=== PATIENT | male | born 1970 | race Caucasian/White ===

== ENCOUNTER 2023-03-28 15:07 | Emergency (ER) | payer BC, SELFPAY ==
[2023-03-28 15:12] VITALS: BP 130/82; PULSE 99; RESP 18; TEMP 36.2; O2SAT 98; BMI 32.7
--- NOTE | 2023-03-28 15:18 | ED.GENADULT ---
HPI - General Adult General Time Seen by Provider: 15:18 Date Seen: 03/28/23 Chief complaint: Unspecified Complaint, Adult Stated complaint: Muscle pain Time Seen by Provider: 03/28/23 15:09 Source: patient and RN notes reviewed Mode of arrival: ambulatory Limitations: no limitations History of Present Illness HPI narrative: This 52yo male is coming into the ED after talking to phone triage nurse for right back pain. He notes he has had this right back pain for some time but recently it has intensified. Denies any trauma. No fevers or chills. Is definitely positional. Movement hurts it. There is no internal breathing difficulty, no internal chest pain. He has tried some ice and heat, maybe some isolated ibuprofen use. He has went to the chiropractor, it use to last a lot longer but now it is only about 1 day that it stays improved. He notes sometimes when he will move positions like sitting up, it will catch and be severe to the point it takes his breath away for a few seconds. When the pain is quite intense, he has had nausea. Otherwise, at baseline there is no nausea vomiting, no abdominal pain, no change in appetite or difficulty eating. It does seem like it is external to him in the chest wall along the right side, along the base of the ribs, over lower rib area. He is on sertraline, denies any medication use such as cholesterol medicine. Also takes BuSpar. Related Data Home Medications Medication Instructions Recorded Confirmed buspirone 10 mg tablet 20 mg PO BID 03/28/23 03/28/23 sertraline 100 mg tablet 100 mg PO BID 03/28/23 03/28/23 Previous Rx's Medication Instructions Recorded cyclobenzaprine 10 mg tablet 10 mg PO TID PRN muscle spasm #20 03/28/23 tabs ketorolac 10 mg tablet 10 mg PO Q6H PRN pain 5 days #20 03/28/23 tabs Allergies Allergy/AdvReac Type Severity Reaction Status Date / Time No Known Drug Allergies Allergy Verified 03/21/22 11:43 Review of Systems Status of ROS: Reports: 6 or more systems reviewed and unremarkable except as noted in History and below Exam Const: Vital Signs, click to edit/add: Vital Signs - 24 hr 03/28/23 15:12 Temperature 97.1 F L Pulse Rate [Right Pulse Oximeter] 99 Respiratory Rate 18 Blood Pressure [Ri ght Upper Arm] 130/82 Pulse Oximetry 98 Oxygen Delivery Me thod Room Air 52-year-old male is alert, interactive, no apparent distress. When he did lie back on the bed and 1 time sitting up, felt pain in that right posterior back area. He is alert, interactive, no apparent distress. Face atraumatic, sclera clear. Neck supple. No midline tenderness over his cervical spine thoracic spine or lumbar spine. There is no paraspinous tenderness on either side, certainly no interscapular back pain on palpation. There is no visible changes to the skin over the chest wall on inspection. I cannot palpably reproduce the chest wall pain. With movement he is definite that he feels it in the chest wall. Lungs are clear, good air entry, no wheezing or crackles. CV regular rate and rhythm, no murmur, normal S1 and S2. Abdomen is completely soft, nontender, nondistended, no organomegaly. Documenting provider has reviewed patient's vital signs: yes Course Course ED Course: We will look at chest xray, basic labs including CBC, CRP, lytes. This seems likely musculoskeletal based on examination. Reevaluation(s) Time of Reevaluation #1: 16:24 Reevaluation #1: Reviewed with patient the normal CXR and labs. Re-evaluation shows him to definitely be symptomatic in the right interscapular region, more inferiorly. Was evaluated after attempting to sit up and found painful areas. Vital Signs Vital signs: Initial Vital Signs Temperature 97.1 F L 03/28/23 15:12 Temperature Source Temporal Artery Scan 03/28/23 15:12 Pulse Rate 99 03/28/23 15:12 Respiratory Rate 18 03/28/23 15:12 Blood Pressure 130/82 03/28/23 15:12 Blood Pressure Mean 98 03/28/23 15:12 Blood Pressure Position Sitting 03/28/23 15:12 Pulse Oximetry 98 03/28/23 15:12 Oxygen Delivery Method Room Air 03/28/23 15:12 Vital Signs Temperature 97.1 F L 03/28/23 15:12 Pulse Rate 99 03/28/23 15:12 Respiratory Rate 18 03/28/23 15:12 Blood Pressure 130/82 03/28/23 15:12 Pulse Oximetry 98 03/28/23 15:12 Oxygen Delivery Method Room Air 03/28/23 15:12 Temperature 97.1 F L 03/28/23 15:12 Pulse Rate 99 03/28/23 15:12 Respiratory Rate 18 03/28/23 15:12 Blood Pressure 130/82 03/28/23 15:12 Pulse Oximetry 98 03/28/23 15:12 Oxygen Delivery Method Room Air 03/28/23 15:12 Medical Decision Making Lab Data Lab results reviewed: Yes I reviewed the patient's lab results Labs: Lab Results 03/28/23 Range/Units 15:40 WBC 7.86 (4.50-11.00) K/uL RBC 4.89 (4.30-5.90) m/uL Hgb 14.2 (13.5-17.5) gm/dL Hct 42.7 (37.0-53.0) % MCV 87 (80-100) fL MCH 29 (26-34) pg MCHC 33 (32-36) gm/dL RDW Coeff of Swapnil 12.1 (11.5-15.5) % Plt Count 176 (140-440) K/uL Neut % (Auto) 69.3 (42.0-72.0) % Lymph % (Auto) 20.4 (20-44) % Upson % (Auto) 7.5 (0.0-11.0) % Eos % (Auto) 2.3 (0.0-7.0) % Baso % (Auto) 0.4 (0.0-3.0) % Neut # (Auto) 5.45 (1.7-7.0) K/uL Lymph # (Auto) 1.60 (0.90-2.90) K/uL Upson # (Auto) 0.60 (0.00-0.90) K/UL Eos # (Auto) 0.18 (0.00-0.50) K/uL Baso # (Auto) 0.03 (0.00-0.30) K/uL Abs Immat Gran (auto) 0.01 (0.00-0.30) K/uL Imm/Tot Granulo (auto) 0.1 % Sodium 136 (135-149) mmol/L Potassium 3.8 (3.6-5.1) mmol/L Chloride 105 (96-114) mmol/L Carbon Dioxide 22 (20-32) mmol/L Anion Gap 9 (7-15) mEq/L BUN 17 (7-30) mg/dL Creatinine 0.8 (0.5-1.5) mg/dL Estimated Creat Clear 119.90 Estimated GFR 107 ml/min Glucose 111 (60-115) mg/dL Calcium 8.3 L (8.4-10.6) mg/dL Total Bilirubin 0.2 (0.1-1.5) mg/dL AST 33 (12-35) U/L ALT 33 (4-50) U/L Alkaline Phosphatase 54 (40-150) U/L C-Reactive Protein < 0.5 L (0.5-1.0) mg/dL Total Protein 5.5 L (6.0-8.3) g/dL Albumin 3.5 (3.3-5.0) g/dL Imaging Data Chest x-ray: Attestation: I have reviewed the pertinent imaging results. My impression: No acute pathology on my preliminary review. Radiologist's impression: Patient: MCKENNA VO Facility:?[facility] Patient ID:?[id number] Site Patient ID:?[id number]. Site :?[id number] Study:?XRay Chest 2V-03/28/2023 3:54:50 PM Ordering Physician:Bala Wyatt Final Report: INDICATION: Chest pain. TECHNIQUE: Chest 2 views. COMPARISON: None. FINDINGS: Cardiovascular and mediastinum: Heart size and vasculature are normal in caliber and appearance. Lungs and pleural spaces: Lungs are clear. No sign of infiltrate or mass. No sign of pleural effusion. No pneumothorax. Bones and soft tissues: No significant findings. IMPRESSION: No acute or significant findings. Dictated by Mauro Souza MD @ 03/28/2023 3:58:41 PM Critical Care Time Critical Care Time Critical Care Time: No Discharge Plan Discharge Clinical Impression: Interscapular pain Patient Disposition: Home, Self-Care Condition: Stable Instructions: Back Pain (ED) Additional Instructions: The rhomboid muscle in this region of the back can cause as pain as you are experiencing. We will try a muscle relaxant and Toradol. Do not use ibuprofen while on the Toradol. Can supplement with Tylenol 1000 mg 3 times a day with either Toradol or ibuprofen. Once you are done with the Toradol, can move to ibuprofen. Would recommend ice to this interscapular area on the right. If this is not helping her symptoms over the next few days or if worsening, do recommend follow up in clinic for re-evaluation. It is fine to go to the chiropractor if you would still like to. Activity Level: Activity as Tolerated Prescriptions: New ketorolac 10 mg tablet 10 mg PO Q6H PRN (Reason: pain) 5 Days Qty: 20 0RF cyclobenzaprine 10 mg tablet 10 mg PO TID PRN (Reason: muscle spasm) Qty: 20 0RF No Action sertraline 100 mg tablet 100 mg PO BID buspirone 10 mg tablet 20 mg PO BID Follow Up/Referrals: Irvin Borja MD [Staff Physician] - Stand Alone Forms: [facility] Info Instructions
--- NOTE | 2023-03-28 15:29 | CRLHL7_ITS ---
For Patients: As a result of the Century Cures Act, medical imaging exams and procedure reports are released immediately into your electronic medical record. You may view this report before your referring provider. If you have questions, please contact your health care provider. INDICATION: Chest pain. TECHNIQUE: Chest 2 views. COMPARISON: None. FINDINGS: Cardiovascular and mediastinum: Heart size and vasculature are normal in caliber and appearance. Lungs and pleural spaces: Lungs are clear. No sign of infiltrate or mass. No sign of pleural effusion. No pneumothorax. Bones and soft tissues: No significant findings. IMPRESSION: No acute or significant findings. Dictated by Mauro Souza MD @ 03/28/2023 3:58:41 PM (Electronically Signed)
[2023-03-28 16:05] LABS: Basophils Absolute Auto 0.03 K/uL (0.00-0.30); Basophils Percent Auto 0.4 % (0.0-3.0); Eosinophils Absolute Auto 0.18 K/uL (0.00-0.50); Eosinophils Percent Auto 2.3 % (0.0-7.0); Hematocrit 42.7 % (37.0-53.0); Hemoglobin* 14.2 gm/dL (13.5-17.5); Immature Granulocytes Abs Auto 0.01 K/uL (0.00-0.30); Immature Granulocytes Pct Auto 0.1 %; Lymphocytes Percent Auto 20.4 % (20-44); Mean Corpuscular HGB Conc 33 gm/dL (32-36); Mean Corpuscular Hemoglobin 29 pg (26-34); Mean Corpuscular Volume 87 fL (80-100); Monocytes Percent Auto 7.5 % (0.0-11.0); Neutrophils Absolute Auto 5.45 K/uL (1.7-7.0); Neutrophils Percent Auto 69.3 % (42.0-72.0); Platelet Count* 176 K/uL (140-440); RDW Coefficient of Variation % 12.1 % (11.5-15.5); Red Blood Count 4.89 m/uL (4.30-5.90); White Blood Count* 7.86 K/uL (4.50-11.00)
[2023-03-28 16:07] LABS: Albumin* 3.5 g/dL (3.3-5.0); Chloride* 105 mmol/L (96-114)
[2023-03-28 16:08] LABS: Potassium* 3.8 mmol/L (3.6-5.1); Sodium* 136 mmol/L (135-149)
[2023-03-28 16:10] LABS: Creatinine* 0.8 mg/dL (0.5-1.5); Estimated Glomerular Filt Rate 107 ml/min
[2023-03-28 16:11] LABS: Alanine Aminotransferase* 33 U/L (4-50); Alkaline Phosphatase* 54 U/L (40-150); Anion Gap 9 mEq/L (7-15); Aspartate Amino Transferase* 33 U/L (12-35); Bilirubin Total* 0.2 mg/dL (0.1-1.5); Blood Urea Nitrogen* 17 mg/dL (7-30); Calcium* 8.3 mg/dL (8.4-10.6); Carbon Dioxide* 22 mmol/L (20-32); Glucose* 111 mg/dL (60-115); Total Protein* 5.5 g/dL (6.0-8.3)
[2023-03-28 16:16] LABS: C Reactive Protein* < 0.5 mg/dL (0.5-1.0); Slide Review Reflex No
== END 2023-03-28 16:36 | disposition home or self-care (01) ==
PROVIDERS: Emergency Provider Family Medicine
DX: M54.9 Dorsalgia, unspecified (principal)
CPT/HCPCS: 36415; 71046; 80053; 85025; 86140; 99283

== ENCOUNTER 2023-10-07 12:55 | Emergency (ER) | payer BC, SELFPAY ==
[2023-10-07 13:05] VITALS: BP 120/69; PULSE 74; RESP 16; TEMP 36.5; O2SAT 97; BMI 32.5
--- NOTE | 2023-10-07 13:18 | ED_ITS ---
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 It is fairly long and about 4 cm but it is very superficial and only deep a little bit in the middle and deep meaning just through the skin. Not into the flash or not into that she may the deep structures or tendons or muscle basically down to fat. The patient has full range of motion of his hand no deficit of hand motion or sensation. He is updated tetanus mention generally healthy not on blood thinners. Related Data Home Medications Medication Instructions Recorded Confirmed buspirone 10 mg tablet 20 mg PO BID 03/28/23 03/28/23 sertraline 100 mg tablet 100 mg PO BID 03/28/23 03/28/23 Previous Rx's Medication Instructions Recorded cyclobenzaprine 10 mg tablet 10 mg PO TID PRN muscle spasm #20 03/28/23 tabs ketorolac 10 mg tablet 10 mg PO Q6H PRN pain 5 days #20 03/28/23 tabs Allergies Allergy/AdvReac Type Severity Reaction Status Date / Time No Known Drug Allergies Allergy Verified 10/07/23 13:07 Review of Systems Status of ROS: Reports: 6 or more systems reviewed and unremarkable except as noted in History and below Exam Narrative: Exam Narrative: Objective: There is a very superficial about 4 cm cut that is very shallow and barely through the skin at the edges and then the 2 cm in the middle it is a little bit deeper down to fat does not gait much. It is fairly well approximated. Good hemostasis. Normal range of motion of the hand and sensation no tendon involvement. Const: Vital Signs, click to edit/add: Vital Signs - 24 hr 10/07/23 13:05 Temperature 97.7 F Pulse Rate [Right Pulse Oximeter] 74 Respiratory Rate 16 Blood Pressure [Ri ght Upper Arm] 120/69 Pulse Oximetry 97 Oxygen Delivery Me thod Room Air Course Vital Signs Vital signs: Initial Vital Signs Temperature 97.7 F 10/07/23 13:05 Temperature Source Temporal Artery Scan 10/07/23 13:05 Pulse Rate 74 10/07/23 13:05 Pulse Rhythm Regular 10/07/23 13:05 Pulse Strength 3+ Normal 10/07/23 13:05 Respiratory Rate 16 10/07/23 13:05 Blood Pressure 120/69 10/07/23 13:05 Blood Pressure Mean 86 10/07/23 13:05 Blood Pressure Position Sitting 10/07/23 13:05 Pulse Oximetry 97 10/07/23 13:05 Oxygen Delivery Method Room Air 10/07/23 13:05 Vital Signs Temperature 97.7 F 10/07/23 13:05 Pulse Rate 74 10/07/23 13:05 Respiratory Rate 16 10/07/23 13:05 Blood Pressure 120/69 10/07/23 13:05 Pulse Oximetry 97 10/07/23 13:05 Oxygen Delivery Method Room Air 10/07/23 13:05 Temperature 97.7 F 10/07/23 13:05 Pulse Rate 74 10/07/23 13:05 Respiratory Rate 16 10/07/23 13:05 Blood Pressure 120/69 10/07/23 13:05 Pulse Oximetry 97 10/07/23 13:05 Oxygen Delivery Method Room Air 10/07/23 13:05 Medical Decision Making MDM Narrative Medical decision making narrative: After discussion with the patient, he chose to simply try but her flying that shot I think dental work well, would keep his hands are water for the next 3-5 days, and then allow the Steri-Strips come off on their own in about a week's time. This should heal very well, will irrigated out I do not think he needs antibiotics as it is fairly superficial. He is up-to-date on his tetanus. Watch for redness infection, keep dry for at least 3-5 days as mention. Return if problems concerns bleeding or other issues. Did offer to suture this but he wished to try the Steri-Strips route I think that is appropriate and will work. Discharge Plan Discharge Clinical Impression: Laceration Patient Disposition: Home, Self-Care Condition: Improved Additional Instructions: Keep dry for about 5 to 7 days, would recommend allowing at 7 days the Steri- Strips to start coming off may start washing his hands. Would stay out of work it out of water for until that period of time as mention. Light use of the hand as well, avoid aspirin or blood thinners, would take Tylenol for discomfort. Watch for redness or infection return to ED if problems or concerns. Activity Level: Light activity Activity Detail: Keep hand out of water for 5-7 days Discharge Diet: Regular Prescriptions: No Action sertraline 100 mg tablet 100 mg PO BID buspirone 10 mg tablet 20 mg PO BID ketorolac 10 mg tablet 10 mg PO Q6H PRN (Reason: pain) 5 Days Qty: 20 0RF cyclobenzaprine 10 mg tablet 10 mg PO TID PRN (Reason: muscle spasm) Qty: 20 0RF Follow Up/Referrals: Provider,Not a Local [Primary Care Provider] - Stand Alone Forms: [facility] Info Instructions
--- OUTSIDE RECORDS SUMMARY | 2023-10-07 13:20 | XMS_ITS | Clinical Summary ---
Author Name Unknown Organization [facility] Address [place], [place] [address] Care Team Providers Care Machine Stacker Name Role Phone Pcp, No Primary Care Provider Unavailabl e Allergies No known active allergies Medications Medication Sig Dispensed Refills Start Date End Date Status sertraline (ZOLOFT) 50 mg tabletIndication s:Anxiety state,Mild episode of recurrent major depressive disorder (HC) Take 1 Tablet (50 mg) by mouth once daily. Appointment needed for more refills. 30 Tablet 08/24/2023 Active busPIRone (BUSPAR) 10 mg tabletIndication s:Anxiety state Take 1 Tablet (10 mg) by mouth two times daily. Appointment needed for further refills. 60 Tablet 09/17/2023 Active busPIRone (BUSPAR) 10 mg tabletIndication s:Anxiety state Take 1 Tablet (10 mg) by mouth two times daily. 120 Tablet 07/23/2023 4 Discontinue d(Reorder (E-cancel not sent)) Active Problems Problem Noted Date Diagnosed Date Alcohol dependence in remission 07/29/2012 Allergic rhinitis, cause unspecified 11/28/2011 ADHD (attention deficit hyperactivity disorder) 12/15/2010 Overview: Dx'ed as a child in gradeschool Major depressive disorder, recurrent episode, un specified 08/20/2009 GERD (gastroesophageal reflux disease) 0 OCD (obsessive compulsive disorder) 08/20/2009 Anxiety state, unspecified Resolved Problems Problem Noted Date Diagnosed Date Resolved Date Sprain of lumbar region 03/04/200807/27 Encounters Date Type Department Care Team Description 09/17/2023 Refill [facility] [address] [facility] [place] [address] Nancy Polo, DO Refill Request (Busiprone) 08/23/2023 Refill [facility] [address] [place] [address] Nancy Polo, DO Refill Request (Sertraline HCL 50mg tabs) 07/23/2023 1:10 PM COMPLIANCE EXAMINER Office [facility] [address] [facility] [place] [address] Nancy Polo, DO Medication Management (med management) 07/23/2023 Travel from Last 3 Months Immunizations Name Administration Dates Next Due COVID-19 vaccine (Macrotherapy 30mcg/0.3mL) P F, MDV 11/02/2020,10/12/2020 Influenza RIV4 (Age 18+ Years) PRESERV FREE 03/26 Influenza, IIV4 04/23/2023 Td (Age >=7 Years) 10/07/2007,08/06/2003 Tdap 10/09/2018 Family History Medical History Relation Name Comments Psychiatric illness Brother 1 ETOH dep endence, depression Good Health Father Cancer Maternal Uncle 1 Ramakrishna lung Cancer Maternal Uncle 2 Andreas lung Cancer-breast Mother Relation Name Status Comments Brother 1 Alive Brother 2 Alive Father Alive Maternal Uncle 1 Ramakrishna Maternal Uncle 2 Andreas Mother Alive Sister Alive Social History Tobacco Use Types Packs/Day Years Used Date Smoking Tobacco: Every Day Cigarettes Smokeless Tobacco: Never Tobacco Cessation:Ready to Q uit: Not Asked; Counseling Given: Not Answered Comments:attempting to quit - is smoking about 5 cigarettes per day at this time. Alcohol Use Standard Drinks/Week Comments Yes 0 (1 standard drink = 0.6 oz pur e alcohol) quit as of December 11, 2021 PHQ-2 Answer Date Recorded PHQ-2 TOTAL SCORE 4 07/23/2023 Social Connections Answer Date Recorded Frequency of Communication with Friends and Fami ly 0 07/23/2023 Financial Resource Strain Answer Date R ecorded Difficulty of Paying Living Expenses 3 07/23/2023 Difficulty of Paying Living Expenses Not on file 07/23/2023 Food Insecurity Answer Date Recorded Worried About Running Out of Food in the Last Ye ar 1 07/23/2023 Transportation Needs Answer Date Record ed Lack of Transportation (Medical) 1 07/23/2023 Housing Stability Answer Date Recorded Unable to Pay for Housing in the Last Year 1 07/23/2023 Sex and Gender Information Value Date Recorded Sex Assigned at Not on file Gender Identity Not on file Sexual Orientation Not on file Obstetrics History Last Filed Vital Signs Vital Sign Reading Time Taken Comments Blood Pressure 111/75 07/23/2023 1:17 PM COMPLIANCE EXAMINER Pulse 77 07/23/2023 1:17 PM COMPLIANCE EXAMINER Temperature 37 ??C (98.6 ??F) 08/19/2018 4:30 PM COMPLIANCE EXAMINER Respiratory Rate - - Oxygen Saturation 95% 07/23/2023 1:17 PM COMPLIANCE EXAMINER Inhaled Oxygen Concentration - - Weight 111.1 kg (245 lb) 07/23/2023 1:17 PM COMPLIANCE EXAMINER Height 185.4 cm (6' 1) 03/02/2022 10:29 AM CDT Body Mass Index 32.32 03/02/2022 10:29 AM CDT Plan of Treatment Health Maintenance Due Date Last Done Comments Pneumococcal series for age 6-64 (1 of 2 - PCV) 12/11/1977 HIV for age 15-65 12/11/1986 Hepatitis C screening for ag e 18-79 12/11/1989 Colonoscopy through age 75 12/11/2016 Lipids for age 45-75 12/31/2018 12/31/2013 Zoster (shingles) series for age 50+ (1 of 2) 12/11/2021 BMI (ht and wt on same day) for age 18+ 03/02/2023 03/02/2022, 12/21/2020, 08/19/2018, Additional history exists Influenza for age 50-64 02/24/2024 04/23/2023, 04/20 Depression screening for age 12+ 07/23/2024 07/23/2023, 03/02/2022, 12/21/2020, Additional history exists Tetanus booster 10/09/2028 10/09/2018, 09/23, 08/06/2003 Tdap Completed 10/09/2018 COVID-19 vaccine series Completed 04/23/20 23, 03/21/2022, 06/21/2021, Additional history exists Procedures Procedure Name Priority Date/Time Associated Diagnosis Comments LIPID PANEL W REFLEX MEASURED LDL Routine 12/31/2013 12:17 PM CDT Lipid screening from Last 3 Months or Most Recently Relevant to Health Maintenance Results * (ABNORMAL) LIPID PANEL W REFLEX MEASURED LDL (12/31/2013 12:17 PM CDT) CHOLESTEROL,TOTAL 241(H) 100 - 199 mg/dL 12/31/2013 12:43 PM CDT [facility] TRIGLYCERIDES 319(H) <150 mg/dL 12/31/2013 12:43 PM CDT [facility] HDL CHOLESTEROL 55 >40 mg/dL 4 12:43 PM CDT [facility] NON-HDL CHOLESTEROL 186(H) <145 mg/dl 12/31/2013 12:43 PM CDT [facility] CHOL/HDL RATIO 4.38 <4.50 12/31/2013 12:43 PM CDT [facility] LDL CHOLESTEROL 122 <=130 mg/dL 12/31/2013 12:43 PM CDT [facility] PATIENT STATUS NON-FASTI NG 12/31/2013 12:43 PM CDT [facility] Blood specimen (specimen) BLOOD SPECIMEN / Unknown Venipuncture / Unknown 12/31/2013 12:17 PM CDT 12/31/2013 12:17 PM CDT Tracey Jacobo MD CHEMISTRY [facility] [address] [place] [address], from Last 3 Months or Most Recently Relevant to Health Maintenance Care Teams Machine Stacker Relationship Specialty Start Date End Date Pcp, No . PCP - General 07/23/23
--- NOTE | 2023-10-07 13:29 | ED.NURSE ---
Patient's laceration cleansed with hibiclens and saline, laceration approximated and steri strips applied. Placed telfa on wound and wrapped with kerlix. Post care instructions reviewed with patient.
== END 2023-10-07 13:32 | disposition home or self-care (01) ==
PROVIDERS: Emergency Provider Family Medicine
DX: S61.412A Laceration without foreign body of left hand, initial encounter (principal); Y93.G1 Activity, food preparation and clean up
CPT/HCPCS: 99283

== ENCOUNTER 2024-08-04 14:00 | Outpatient (RCR) | payer BC, SELFPAY | END 2024-08-04 14:55 | disposition home or self-care (01) | PROVIDERS: Visit Provider Family Medicine | DX: M54.89 Other dorsalgia (principal); Z51.89 Encounter for other specified aftercare | CPT/HCPCS: 97110; 97140; 97162 ==